=== PATIENT | male | born 1975 | race Two or more races ===

== ENCOUNTER 2016-09-08 12:59 | Emergency (ER) | payer OTHER ==
[2016-09-08 13:14] VITALS: BP 130/79
[2016-09-08] MEDS ORDERED: ACET-704 PO (13:30)
[2016-09-08] MEDS ORDERED: DICY20TA3 PO (13:30)
[2016-09-08] MEDS ORDERED: ONDA4TAB10 PO (13:30)
--- NOTE | 2016-09-08 13:34 | PHYS DOC ---
General Chief Complaint: ABDOMINAL PAIN Stated Complaint: N/V Time Seen by MD: 13:18 Source: patient Exam Limitations: no limitations Problems: History of Present Illness Initial Comments Pt is 41/M to ED c/o abdominal pain, n/v. Pt states that for the past 5-6 days he's had abdominal discomfort with loose stools. No travel/bad food exposure, pain described as epigastric "burning" relieved with BM. Pt feels bloated and passing lots of gas, +sick contacts similar sx. Pt trying to stay hydrated, one episode emesis prior to coming to ED today. No measured temps appetite intact. Timing/Duration: 1 week Severity: moderate Modifying Factors: worse with eating Associated Symptoms: malaise, nausea/vomiting, other Allergies: Coded Allergies: No Known Drug Allergies (Unverified , 09/08/16) Past Medical History Medical History: no pertinent history Surgical History: noncontributory Social History Smoker: non-smoker Alcohol: none Drugs: none Review of Systems Constitutional: denies chills, denies diaphoresis, denies fever, malaise Respiratory: denies cough, denies shortness of breath Cardiovascular: denies chest pain, denies palpitations Gastrointestinal: see HPI Genitourinary: denies discharge, denies dysuria, denies frequency Musculoskeletal: denies back pain, denies joint swelling, denies neck pain Psychiatric/Neurological: denies headache, denies numbness, denies paresthesia Physical Exam General Appearance: WD/WN, no apparent distress Eyes: bilateral eye EOMI, bilateral eye PERRL, bilateral eye normal inspection Ear, Nose, Throat: hearing grossly normal, normal ENT inspection, normal pharynx Neck: non-tender, supple Respiratory: normal breath sounds, no respiratory distress Cardiovascular: normal peripheral pulses, regular rate, rhythm Gastrointestinal: soft (nondistended, generalized TTP no focality, neg mcburney /lyles, no r/g/mass) Rectal: deferred Back: no CVA tenderness, no vertebral tenderness Extremities: non-tender, normal inspection 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 Pt requests discharge home and conservative management, will return if needed. Departure Time of Disposition: 13:31 Disposition: 01 HOME, SELF-CARE Diagnosis: gastroenteritis Condition: GOOD Patient Instructions: Viral Gastroenteritis, [id number] Additional Instructions: Rest, no strenuous activity. Clear liquids, advance to bland diet as tolerated. Aggressive hydration with gatorade, water. Rx: zofran odt, dicyclomine, tylenol #3 (14) Follow up with your doctor in 3-5 days if not better. Return to ED with new or changing symptoms. TASHI STONER DO Sep 08, 2016 13:34
[2016-09-08] MEDS ORDERED: ONDANSETRON ODT 4 MG TAB.RAPDIS PO ONE (13:45)
[2016-09-08] MEDS ORDERED: DICYCLOMINE HCL 20 MG TABLET PO ONE (13:45)
== END 2016-09-08 13:53 | disposition home or self-care (01) ==
LOC: ER 12:59
DX: K52.9 Noninfective gastroenteritis and colitis, unspecified (principal); R53.81 Other malaise
CPT/HCPCS: 99283; Q0162

== ENCOUNTER 2017-01-18 04:54 | Emergency (ER) | payer OTHER ==
[~2017-01-18] VITALS: Ht 170.2 cm; Wt 87.1 kg
[~2017-01-18 04:54] MED LIST: ACET-704 PO; DICY20TA3 PO; ONDA4TAB10 PO
[2017-01-18 05:10] VITALS: BP 126/92
[2017-01-18] MEDS ORDERED: PRED20TA PO (05:29)
--- NOTE | 2017-01-18 05:33 | PHYS DOC ---
General Chief Complaint: UPPER EXTREMITY PAIN Stated Complaint: GOUT WITH ELBOW, POST OP SURGERY Time Seen by MD: 05:04 Source: patient Exam Limitations: no limitations Problems: History of Present Illness Initial Comments Patient is a 41-year-old male who typically follows up at [facility] who comes to the ED complaining of gouty arthritis. Patient states that he has history of gout and had a recent surgical procedure to insert a cadaver bone graft in his left scapula to correct shoulder instability. He says that since the surgery he's had 3 attacks of gout. Patient is diabetic on metformin and tries to avoid steroids due to hyperglycemia. He also has history of H. pylori peptic ulcer disease which was treated this past August and causing him to avoid NSAIDs medication. Pt states that last night he developed gouty pain in his left elbow. He was able to take PO toradol and tylenol which got him thru the night. He awoke in pain at 0430 and comes to seek relief. No new trauma/strenuous/inciting activity. Left elbow feels hot to him, the skin is very sensitive and he complains of pain with both active and passive ROM. No fever/chills/diaphoresis/n/v or other s/s systemic infection. Sx are identical to prior gout symptoms. Pt would like to avoid opiates. Onset: yesterday Severity: severe Pain/Injury Location: left elbow Method of Injury: unknown Modifying Factors: worse with jarring, worse with movement, improves with rest Allergies: Coded Allergies: No Known Drug Allergies (Unverified , 09/08/16) Past Medical History Medical History: diabetes, hypertension, other (hyperlipidemia, osteoarthritis , peptic ulcer disease, H. pylori, gout) Surgical History: other (recent left shoulder surgery) Social History Smoker: non-smoker Alcohol: none Drugs: none Review of Systems Constitutional: denies chills, denies diaphoresis, denies fever, denies malaise Respiratory: denies cough, denies shortness of breath Cardiovascular: denies chest pain, denies palpitations, denies syncope Gastrointestinal: denies abdominal pain, denies diarrhea, denies nausea, denies vomiting Genitourinary: denies dysuria, denies frequency, denies hematuria Musculoskeletal: see HPI Psychiatric/Neurological: denies headache, denies numbness, denies paresthesia , denies weakness Physical Exam General Appearance: WD/WN, no apparent distress Neck: non-tender, supple Cardiovascular/Respiratory: normal peripheral pulses, no respiratory distress Elbow/Forearm: limited ROM (left elbow exquisitely TTP, ROM not tested due to pt discomfort, no skin changes or evidence of trauma), pain, soft tissue tenderness Neurologic/Tendon: normal sensation, normal motor functions, normal tendon functions, responds to pain, no evidence tendon injury Psychiatric: alert, oriented x 3 Skin: normal color, warm/dry Orders, Labs, Meds I discussed treatment options at length with the patient. Eventually we settled on Toradol and Solu-Medrol intramuscularly here in a prednisone burst orally for 3-5 days at home. He agrees to monitor his sugars closely and will come back to the emergency department or call his doctor needed. He will follow-up at [facility] on Friday he expressed agreement and understanding with the treatment plan. Departure Time of Disposition: : Disposition: HOME, SELF-CARE Diagnosis: gouty arthritis recurrence Condition: GOOD Patient Instructions: Gout, [id number] Additional Instructions: Please review the patient education materials dispensed by ED staff. Wear one of your slings from home as needed for symptom control. Continue current medications. [id number] Tylenol as needed. Prescription: Prednisone 20 mg twice daily for 5 days Monitor your blood sugars closely while taking prednisone. Follow-up at [facility] on Friday for recheck. Return to ED with new or changing symptoms. TASHI STONER DO Jan 18, 2017 05:33
[2017-01-18] MEDS ORDERED: KETOROLAC 60 MG/2 ML VIAL. IM ONE ×2 (05:38→06:00)
[2017-01-18] MEDS ORDERED: methylPREDNISolone SOD SUCC PF 125 MG/2 ML VIAL. ONE (05:38)
[2017-01-18] MEDS ORDERED: methylPREDNISolone SOD SUCC PF 125 MG/2 ML VIAL. IM ONE (06:00)
== END 2017-01-18 05:46 | disposition home or self-care (01) ==
LOC: ER 04:54
DX: M10.9 Gout, unspecified (principal); M19.022 Primary osteoarthritis, left elbow; E11.9 Type 2 diabetes mellitus without complications; E78.5 Hyperlipidemia, unspecified; I10 Essential (primary) hypertension; Z87.11 Personal history of peptic ulcer disease; Z86.19 Personal history of other infectious and parasitic diseases; Z98.890 Other specified postprocedural states
CPT/HCPCS: 96372; 99284; J1885; J2930